=== PATIENT | female | born 1955 | race Caucasian/White ===

== ENCOUNTER 2021-11-25 21:38 | Emergency (ER) | payer OTHER, SELFPAY ==
[~2021-11-25] VITALS: Ht 165.1 cm; Wt 88.0 kg
[2021-11-25 21:48] VITALS: BP_SYST 150
[2021-11-25] MEDS ORDERED: KETOROLAC TROMETHAMINE 60 MG/2 ML VIAL IM ONE (22:00)
[2021-11-25] MEDS ORDERED: MORPHINE 4 MG INJ. 4 MG/ML VIAL IM ONE (22:00)
[2021-11-26] MEDS ORDERED: fentaNYL CITRATE/PF 100 MCG/2 ML AMP IM ONE (00:15)
[2021-11-26] MEDS ORDERED: fentaNYL CITRATE/PF 100 MCG/2 ML AMP IVP ONE (00:15)
[2021-11-26] MEDS ORDERED: PROPOFOL 200MG/ 20ML VIAL (DIPRIVAN) IV ONE (00:45)
[2021-11-26] MEDS ORDERED: LORazepam 2 MG/ML VIAL ONE (01:02)
[2021-11-26 08:20] VITALS: BP_SYST 150
== END 2021-11-26 08:20 | disposition short-term general hospital (02) ==
LOC: SED 21:38
DX: U07.1 COVID-19 (principal); S43.004A Unspecified dislocation of right shoulder joint, initial encounter; R53.1 Weakness; R20.0 Anesthesia of skin; W18.39XA Other fall on same level, initial encounter; Y93.89 Activity, other specified; Y92.89 Other specified places as the place of occurrence of the external cause; Y99.8 Other external cause status
CPT/HCPCS: 23650; 36415; 73030; 73060; 73080; 73090; 73130; 87426; 96372; 99152; 99285; J1885; J2060; J2270; J2704; J3010